=== PATIENT | female | born 1970 ===

== ENCOUNTER 2020-12-11 12:15 | Inpatient (IN) | payer OTHER ==
[~2020-12-11] VITALS: Ht 157.5 cm; Wt 50.8 kg
[2020-12-11] MEDS ORDERED: LAMICTAL ODT50 MG PO (15:38)
[2020-12-11] MEDS ORDERED: CELEXA40 MG PO (15:38)
[2020-12-11] MEDS ORDERED: ZOCOR20 MG PO (15:39)
[2020-12-11] MEDS ORDERED: TRANXENE T-TAB7.5 MG PO (15:39)
[2020-12-16] MEDS ORDERED: CITALOPRAM HBR10 MG (08:01)
[2020-12-16] MEDS ORDERED: LAMOTRIGINE25 M1 (08:01)
[2020-12-16] MEDS ORDERED: CITALOPRAM HBR20 MG (08:01)
[2020-12-16] MEDS ORDERED: SIMVASTATIN10 MG (08:03)
== END 2020-12-18 14:49 | disposition home or self-care (01) | DRG 743 ==
LOC: O/R 12-16 05:15 → OB/GYN 12-16 05:15
PROVIDERS: ADMIT Specialist; ATTEND Specialist
PROC: 0UT2FZZ Resection of Bilateral Ovaries, Via Natural or Artificial Opening With Percutaneous Endoscopic Assistance (ICD-10-PCS; 2020-12-16)
PROC: 0UT7FZZ Resection of Bilateral Fallopian Tubes, Via Natural or Artificial Opening With Percutaneous Endoscopic Assistance (ICD-10-PCS; 2020-12-16)
PROC: 0UT9FZZ Resection of Uterus, Via Natural or Artificial Opening With Percutaneous Endoscopic Assistance (ICD-10-PCS; principal; 2020-12-16 10:30)
DX: D25.1 Intramural leiomyoma of uterus (principal); N84.0 Polyp of corpus uteri; D26.0 Other benign neoplasm of cervix uteri; N83.01 Follicular cyst of right ovary; N94.89 Other specified conditions associated with female genital organs and menstrual cycle; N83.12 Corpus luteum cyst of left ovary